=== PATIENT | female | born 1995 | race Caucasian/White ===

== ENCOUNTER 2018-02-28 18:15 | Emergency (ER) | payer OTHER ==
[~2018-02-28] VITALS: Ht 160 cm; Wt 85.0 kg
[~2018-02-28 18:15] MED LIST: LEVOTHYROXIN50 MCG PO; NAPROSYN500 MG PO; PREVACID30 M1 PO; no home meds
[2018-02-28] MEDS ORDERED: NAPROSYN500 MG PO (19:54)
[2018-02-28 20:00] VITALS: BP 118/77
== END 2018-02-28 20:00 | disposition home or self-care (01) | DRG 552 ==
LOC: ED 18:15
DX: S33.5XXA Sprain of ligaments of lumbar spine, initial encounter (principal); M25.511 Pain in right shoulder; M54.2 Cervicalgia; M25.512 Pain in left shoulder; R07.81 Pleurodynia; V49.40XA Driver injured in collision with unspecified motor vehicles in traffic accident, initial encounter

== ENCOUNTER 2021-06-29 09:48 | Emergency (ER) | payer BC, MEDICAID ==
[2021-06-29 10:16] VITALS: BP 123/73
[2021-06-29 11:00] LABS: HEMOGLOBIN 13.7 g/dl (12.0-16.0); MEAN CELL VOLUME 92.9 fL CALC (80.0-100.0); MEAN CORPUSCULAR HGB 30.3 pG CALC (26.0-32.0); MEAN CORPUSCULAR HGB CONC 32.6 g/dL CAL (32.0-36.0); NEUT# 2.17 thou/uL (2.00-7.15); RED BLOOD COUNT 4.52 mill/uL (4.20-5.60); RED CELL DISTRI WIDTH 12.1 % (11.5-15.5)
[2021-06-29 11:09] LABS: ALBUMIN 3.9 g/dL (3.2-5.0); ALKALINE PHOSPHATASE 55 u/l (38-126); ANION GAP 13 (6-22 (CALC)); BUN 11 mg/dL (7-17); BUN/CREATININE RATIO 17 (12-20 (CALC)); CARBON DIOXIDE 25 mmol/l (22-30); CHLORIDE 103 mmol/l (95-108); CREATININE 0.7 mg/dL (0.5-1.0); GFR > 60 ML/MIN (>=60 (CALC)); GFR FOR AFR.AMER. > 60 ML/MIN (>=60 (CALC)); POTASSIUM 4.3 mmol/l (3.5-5.1); SGOT/AST 26 u/l (14-36); SODIUM 137 mmol/l (137-146); TOTAL PROTEIN 6.8 g/dL (6.3-8.2)
[2021-06-29 11:23] LABS: BILIRUBIN, TOTAL 0.2 mg/dL (0.0-1.4)
[2021-06-29 11:43] LABS: URINE BILIRUBIN - DIPSTICK NEGATIVE (NEGATIVE); URINE BLOOD DIPSTICK LARGE (NEGATIVE); URINE COLOR YELLOW; URINE GLUCOSE - DIPSTICK NEGATIVE (NEGATIVE); URINE KETONE 40 mg/dL (NEGATIVE); URINE LEUK ESTERASE NEGATIVE (NEGATIVE); URINE PROTEIN - DIPSTICK TRACE mg/dL (NEG-TRACE); URINE SPECIFIC GRAVITY >=1.030; URINE UROBILINOGEN - DIPSTICK 0.2 E.U./dL (0.2)
[2021-06-29 11:45] LABS: URINE NITRITE - DIPSTICK NEGATIVE (Negative)
[2021-06-29 11:55] LABS: BETA-HCG, QUANT(RESULT NUMBER) 16898 mIU/mL
[2021-06-29 11:57] LABS: URINE SQUAMOUS EPITHELIAL CELL FEW EPI/hpf (0-FEW)
== END 2021-06-29 14:14 | disposition home or self-care (01) | DRG 779 ==
LOC: ED 09:48
PROVIDERS: Emergency Medicine
DX: O02.1 Missed abortion (principal)

== ENCOUNTER 2023-06-11 08:52 | Day surgery (SDC) | payer OTHER, MEDICAID ==
[~2023-06-11] VITALS: Ht 162.6 cm; Wt 78.0 kg
[~2023-06-11 08:52] MED LIST changes: +WELLBUTRIN100 M2 PO
[2023-06-11] MEDS ORDERED: PERCOCET 5/321 COMBO PO (11:16)
[2023-06-11 12:44] VITALS: BP 113/68
== END 2023-06-11 11:57 | disposition home or self-care (01) | DRG 750 ==
LOC: ORM 08:52
PROVIDERS: ATTEND Surgery
PROC: 0JB80ZZ Excision of Abdomen Subcutaneous Tissue and Fascia, Open Approach (ICD-10-PCS; principal; 2023-06-11)
DX: N80.121 Deep endometriosis of right ovary (principal)
CPT/HCPCS: C9290; J0690